=== PATIENT | male | born 2005 | race Caucasian/White ===

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

== ENCOUNTER 2024-11-30 18:10 | Emergency (ER) | payer OTHER ==
[2024-11-30 18:34] VITALS: BP 141/66; PULSE 111
[2024-11-30] MEDS: guaiFENesin 100 MG/5 ML Soln 5 ML UD Cup PO ONE (19:23)
[2024-11-30] MEDS: Take Home: Doxycycline 100 MG Cap, 4 Cap Pack PO ONE (21:15)
== END 2024-11-30 19:27 | disposition home or self-care (01) ==
LOC: DL.ED 18:10
DX: B34.9 Viral infection, unspecified (principal)
CPT/HCPCS: 71046; 87081; 87428; 87430; 99283; A9270